=== PATIENT | female | born 1960 | race Caucasian/White ===

== ENCOUNTER → 2022-01-16 09:21 | Outpatient (BNVA) | payer OTHER, SELFPAY | PROVIDERS: Visit Provider Emergency Medicine | DX: M25.562 Pain in left knee (principal) | CPT/HCPCS: 73562; 87070; 87205 ==

== ENCOUNTER → 2022-03-15 10:15 | Outpatient (BNVA) | payer OTHER, SELFPAY | PROVIDERS: Visit Provider Nurse Practitioner Family | DX: R68.89 Other general symptoms and signs (principal); M25.562 Pain in left knee; J10.1 Influenza due to other identified influenza virus with other respiratory manifestations | CPT/HCPCS: 87400; 87426 ==

== ENCOUNTER → 2023-03-03 10:45 | Outpatient (BNVA) | payer OTHER, SELFPAY | PROVIDERS: Visit Provider Nurse Practitioner | DX: R68.89 Other general symptoms and signs (principal) | CPT/HCPCS: 87400; 87426 ==

== ENCOUNTER → 2023-07-22 11:18 | Outpatient (BNVA) | payer OTHER, SELFPAY | PROVIDERS: PCP Nurse Practitioner; Visit Provider Emergency Medicine | DX: M25.562 Pain in left knee (principal); G89.29 Other chronic pain; M17.12 Unilateral primary osteoarthritis, left knee | CPT/HCPCS: 73562 ==

== ENCOUNTER → 2024-05-03 10:57 | Outpatient (BNVA) | payer BC, MEDICARE, SELFPAY | PROVIDERS: PCP Nurse Practitioner; Visit Provider Nurse Practitioner | DX: M79.671 Pain in right foot (principal) | CPT/HCPCS: 84550 ==

== ENCOUNTER → 2024-05-12 14:23 | Outpatient (BNVA) | payer BC, SELFPAY | PROVIDERS: PCP Nurse Practitioner; Visit Provider Nurse Practitioner | DX: R10.9 Unspecified abdominal pain (principal); M25.571 Pain in right ankle and joints of right foot | CPT/HCPCS: 73610; 80053; 81000; 84443; 85025; 87086 ==

== ENCOUNTER 2024-05-28 08:48 | Outpatient (CLI) | payer BC, SELFPAY ==
--- NOTE | 2024-05-28 09:00 | US_ITS ---
WS: [id number] Complete ABDOMINAL ULTRASOUND HISTORY: R10.9 - Unspecified abdominal pain COMPARISON: None available. Liver: 16.1 cm in length. Normal size liver and echogenicity. No bile duct dilatation or mass. Portal Vein: Normal hepatopetal flow with monophasic waveform. Gallbladder: Normally distended gallbladder. There are several very small nonshadowing foci within the gallbladder adjacent to the wall that do not move or shadow consistent with small hyperplastic polyps. Largest polyp measures 5 mm. CBD: 0.5 cm Pancreas: Normal size and echogenicity. Right kidney: 10.2 cm x 4.0 x 3.8 cm. Cortex:1.0 cm. Normal size and echogenicity. No hydronephrosis or mass. Left kidney: 9.4 cm x 4.5 cm x 4.8 cm. Cortex: 1.0 cm. Normal size and echogenicity. No hydronephrosis or mass. Spleen: 9.3 cm. Normal size and echogenicity. Aorta and IVC: Unremarkable abdominal aorta and IVC. US/US abdomen complete* [id number] Impression: 1. Gallbladder polyps, hyperplastic polyps with the largest measuring 5 mm. No cholelithiasis identified. 2. Remaining abdomen ultrasound is negative.
== END 2024-05-28 08:49 | disposition home or self-care (01) ==
LOC: RAD 08:55
PROVIDERS: PCP Nurse Practitioner; Visit Provider Nurse Practitioner
DX: R10.9 Unspecified abdominal pain (principal); K82.4 Cholesterolosis of gallbladder
CPT/HCPCS: 76700

== ENCOUNTER 2024-06-17 13:02 | Outpatient (CLI) | payer BC, SELFPAY ==
--- NOTE | 2024-06-17 13:30 | CT_ITS ---
WS: [id number] CT HEAD TECHNIQUE: Noncontrast CT of the head obtained from the skullbase to the vertex. CLINICAL INFORMATION: R26.9 - Unspecified abnormalities of gait and mobility COMPARISON: None. DLP: 897.[address] scans at [facility] use at least one of these dose optimization techniques: automated exposure control; mA and/or kV adjustment per patient size (includes targeted exams where dose is matched to clinical indication); or iterative reconstruction. FINDINGS: No evidence of intracranial hemorrhage or mass effect. Ventricular system and basal cisterns are patent. Mild small vessel changes with mild parenchymal volume loss. Bulky benign dystrophic calcification along the falx. No extra- axial fluid collections. No evidence of mass or mass effect. Normal anne-white differentiation. Paranasal sinuses and mastoid air cells are well aerated. .Normal visualized soft tissues. CT/CT head wo con* [id number] IMPRESSION: 1. No evidence of intracranial hemorrhage or mass effect. 2. Mild small vessel changes with mild parenchymal volume loss. 3. No acute intracranial findings.
== END 2024-06-17 13:03 | disposition home or self-care (01) ==
LOC: RAD 13:06
PROVIDERS: PCP Nurse Practitioner; Visit Provider Nurse Practitioner
DX: R26.9 Unspecified abnormalities of gait and mobility (principal); K11.7 Disturbances of salivary secretion; R93.0 Abnormal findings on diagnostic imaging of skull and head, not elsewhere classified; G93.89 Other specified disorders of brain
CPT/HCPCS: 70450

== ENCOUNTER 2024-07-07 05:49 | Day surgery (SDC) | payer BC, SELFPAY ==
[2024-07-07] VITALS (14 sets, daily range): BP systolic 120–158; BP diastolic 54–90; PULSE 60–82; RESP 16–22; TEMP 36.1–36.6; O2SAT 99–100; BMI 27.8
[2024-07-07] MEDS: sodium chloride 0.9% 1,000 ML 30 ML IV (06:27)
--- NOTE | 2024-07-07 06:39 | ANES.PREANE2 ---
Pre-Anesthetic Assessment Height/Weight: Height 1.6 m Weight 71.214 kg Temp Pulse Resp BP Pulse Ox O2 Del Method 97.9 F 82 18 152/90 99 Room Air 07/07/24 06:05 07/07/24 06:05 07/07/24 06:05 07/07/24 06:05 07/07/24 06:05 07/07/24 06:11 Operation Date: 07/07/24 07:00 Proposed Procedures p Laparoscopic Cholecystectomy 91073 K82.9 K82.4(Not Applicable) - Mario Nunn MD Familial anesthetic complications: Potential MH in her father, patient seems to deny that was an issue now. Says her father did fine most of his life but when he was elderly he got hot and confused Poor historian on the subject Was Beta Sera taken within 24 hours: N/A Was Clonidine taken within 24 hours: N/A Last intake: Intake Last Liquid Date 07/06/24 Last Liquid Time 21:00 Last Solid Date 07/06/24 Last Solid Time 21:00 Social No alcohol and No tobacco Exam alert, oriented x 3, clear to auscultation bilaterally and regular rate & rhythm Airway Mallampati: Class I Dentition: other (none) Musc/skel Osteoarthritis/DJD Anesthetic Plan ASA status: 2 Anesthesia: General Risk of > 500 ml blood loss (7ml/kg in children): No Medications/Allergies Home Medications ?Medication ?Instructions ?Recorded ?Confirmed ?Last Taken ?Type acetaminophen 325 mg tablet 325 mg PO QID PRN Pain 06/17/24 07/06/24 Unknown History (Tylenol) prednisone 10 mg tablet 30 mg (3 x 10 mg) PO DAILY #15 tabs 07/01/24 07/06/24 07/05/24 Rx Allergies Allergy/AdvReac Type Severity Reaction Status Date / Time onion Allergy Severe ADR-Heartbu Verified 07/01/24 14:31 rn eggs Allergy Severe ADR-Vomitin Uncoded 07/01/24 14:31 g garlic Allergy Severe ADR-Confusi Uncoded 07/01/24 14:31 on Current Medications Generic Name Dose Route Start Last Admin Trade Name Freq PRN Reason Stop Dose Admin Sodium Chloride 1,000 mls @ 30 mls/hr 07/07/24 06:00 07/07/24 06:27 Sodium Chloride 0.9% IV 07/08/24 05:59 30 mls/hr .Q24H ARABELLA Administration PFSH Anesthesia Medical History Chronic pain of left knee Degenerative arthritis of left knee Family History Grandmother Cancer esophageal, breast Father Hypertension Arthritis Stroke Diabetes Social History Smoking and tobacco/nicotine status: former use of tobacco/nicotine Quit status (tobacco/nicotine): has quit using Second hand smoke exposure: No Alcohol intake: former Former alcohol use details: occasionally Substance/Drug Use: never Adopted: No Caregiver/support person: No Lives independently: Yes Housing: House Marital status: / Marital status details: , then Number of children: 2 Number of grandchildren: 1 service: No Current occupational status: employed Current occupation: [place], [place] Current occupational exposures/hazards: No Pets and animals: Yes (1) Pets & animals: cat(s) and dog(s) Sexually active: No Do you think of yourself as: Straight/Heterosexual Current gender identity: Female Special maximo needs: No Agree to transfusion: Yes Female Reproductive History Spontaneous abortions: No Data Anesthesia Cardiac Studies: No Data to Display
--- NOTE | 2024-07-07 07:04 | W.PM.OPSUD ---
Surgery/Procedure H&P Update DATE OF PROCEDURE: July 07, 2024 DATE H&P PERFORMED: 06/17/24 H&P UPDATE INFORMATION: I have reviewed H&P completed within last 30 days, I have examined patient prior to procedure and No changes to prior documentation PLANNED PROCEDURE: Operation Date: 07/07/24 07:00 Proposed Procedures p Laparoscopic Cholecystectomy 47677 K82.9 K82.4(Not Applicable) - Mario Nunn MD
[2024-07-07] MEDS: ceFAZolin 2,000 mg SDV 2000 MG IVP (07:10)
[2024-07-07] MEDS: lidocaine-epi 1% 20 mL INJ INJECTION (07:37)
--- NOTE | 2024-07-07 08:33 | PM.OP ---
Operative Report Date of procedure: July 07, 2024 Pre-op diagnosis: Gallbladder polyps Post-op diagnosis: same Post-op findings: Normal gallbladder Procedure done: Laparoscopic cholecystectomy Implants: NA Specimens removed/disposition: Gallbladder sent to pathology Pathology: Gallbladder Surgeon: Mario Nunn MD Electrician Chief: TATIANA Anesthesia: General Estimated blood loss (mL): 10 Complications: NA Findings: Grossly normal gallbladder Condition: stable Disposition: same day Brief History: 64 yo female who presented with gallbladder polyps that were symptomatic. Discussed risk and benefits and patient agreed to proceed with laparoscopic cholecystectomy possible open. Procedure: I discussed the risks and benefits of laparoscopic cholecystectomy, and obtained consent prior to proceeding to the operating room. SCDs were utilized. Prophylactic antibiotics were administered. General anesthesia was induced. The patient was placed supine, and she was prepped and draped in the usual sterile fashion. Insufflation to 15mmHg was achieved using a Veress needle at Lomeli's point. A 12mm optiview trocar was placed at the umbilicus under direct visualization. The left upper quadrant was inspected, and no injuries were noted. Two 5mm ports were placed in the right upper quadrant, and a 12mm working port was placed in the epigastrium. The gallbladder was then retracted cephalad through the lateral RUQ port, and the infundibulum grabbed through the medial RUQ port and retracted laterally. The gallbladder was not inflammed and the liver had a normal appearance. I proceeded to score the peritoneum over the medial aspect of the gallbladder using a laparoscopic hook with electrocautery. Then the infundibulum was retracted medially in order to score the peritoneum over the lateral aspect of the galbladder. Using a combination of energy and blunt dissection with the [place] and a Kittner dissector, the cystic artery and cystic duct were dissected. I then proceeded to dissect the cystic plate in order to to achieve the critical view of safety. The cystic artery and the cystic duct were clipped three times (leaving two clips on the proximal end of both structures). I then proceeded to dissect the gallbladder off the liver using hook electrocautery. The specimen was placed in an endocatch bag and retrieved from the abdomen through the port on the epigastrium. I then irrigated the gallbladder fossa with 1L of NS to confirm adequate hemostasis and the absence of any bile leaks. The gallbladder fossa was then cauterized again. Prior to ending the laparoscopic portion, I examined the rest of the abdomen and did not find any abnormalities or injuries. The abdomen was then desufflated, and the 11mm port at the umbilicus was closed using 0 vicryl on a UR needle after irrigating copiously. Skin was closed using 4-0 monocryl and surgical glue. The patient woke up from anesthesia and transferred to PACU without any complications.
[2024-07-07] MEDS: fentaNYL 50 mcg/mL INJ 2mL IVP (09:00)
--- NOTE | 2024-07-07 10:20 | ANE.PACU2 ---
Inpatient post-anesthesia follow up: Airway intact: Yes Vital signs: Temperature 97.1 F Pulse Rate 60 Respiratory Rate 18 Blood Pressure 158/90 Pulse Oximetry 100 Oxygen Delivery Me thod Room Air Oxygen Flow Rate 10 Fraction of Inspir ed Oxygen Hydration adequate: Yes Nausea and vomiting: No Pain level: 1 Mental status: Baseline
== END 2024-07-07 10:26 | disposition home or self-care (01) ==
PROVIDERS: PCP Nurse Practitioner; Visit Provider Student in an Organized Health Care Education/Training Program
PROC: 0FT44ZZ Resection of Gallbladder, Percutaneous Endoscopic Approach (ICD-10-PCS; CPT 47562; principal; 2024-07-07 07:00)
DX: K80.10 Calculus of gallbladder with chronic cholecystitis without obstruction (principal); E78.5 Hyperlipidemia, unspecified; Z87.891 Personal history of nicotine dependence
CPT/HCPCS: 47562; 88304; A4216; J0690; J1100; J1885; J2405; J2704; J3010; J3490; J7030; J9999

== ENCOUNTER → 2024-08-19 15:02 | Outpatient (BNVA) | payer BC, SELFPAY | PROVIDERS: PCP Nurse Practitioner; Referring Provider Nurse Practitioner; Visit Provider Nurse Practitioner | DX: S69.91XA Unspecified injury of right wrist, hand and finger(s), initial encounter (principal); X58.XXXA Exposure to other specified factors, initial encounter | CPT/HCPCS: 73130 ==

== ENCOUNTER 2024-10-05 13:10 | Outpatient (CLI) | payer BC, SELFPAY ==
--- NOTE | 2024-10-05 13:12 | CT_ITS ---
WS: [id number] CT ABDOMEN AND PELVIS WITH CONTRAST HISTORY: R19.04 - Left lower quadrant abdominal swelling, mass and... TECHNIQUE: Imaging performed of the abdomen and pelvis with IV contrast. Single phase imaging of the abdomen. Coronal and sagittal reformats are submitted. All CT scans at [facility] use at least one of these dose optimization techniques: automated exposure control; mA and/or kV adjustment per patient size (includes targeted exams where dose is matched to clinical indication); or iterative reconstruction. IV CONTRAST: Omnipaque 350; 100 mL IV. Oral contrast: Yes. DLP: 481.48 mGy.cm COMPARISON: None available. Lower thorax: Lung bases are clear. Heart is normal size. Large hiatal hernia. Liver/biliary system: Normal size with no intrahepatic dilatation. 5 mm cyst LEFT lobe. Gallbladder: Prior cholecystectomy. Pancreas: Normal size pancreas and pancreatic duct. No adjacent inflammation. Spleen: Normal size spleen. No mass or infarct. Adrenal glands: Normal. Right kidney: Mild RIGHT renal atrophy. Kidney measures 7.8 cm in length. Extrarenal pelvis. No renal obstruction. No mass. Left kidney: Low normal size kidney, 8.4 cm in length. Small extrarenal pelvis. No obstruction. Aorta: Mild atherosclerosis with no aneurysm. Lymphadenopathy: None. Free fluid: None. GI tract: No small bowel obstruction. Constipation. Normal appendix. No colitis or GI tract obstruction. Abdominal wall: Mild subcutaneous soft tissue stranding LEFT lateral abdominal wall at the level of the iliac crest. No mass identified. Tiny umbilical hernia contains fat. Pelvis: No free fluid or adenopathy within the pelvis. Periuterine veins. Prominent uterine veins related to pelvic venous congestion. Bones: L4 anterolisthesis by 3 mm. Mild degenerative changes within the lumbar spine. CT/CT abdomen pelvis w con* [id number] IMPRESSION: 1. Subcutaneous soft tissue stranding in the LEFT lower abdominal wall at the level of the iliac crest. Residual soft tissue contusion. No mass. 2. Large hiatal hernia. 3. No GI tract obstruction. 4. Pelvic venous congestion. Numerous periuterine veins are identified. 5. Mild diffuse constipation. 6. Mild atrophy RIGHT kidney and low normal size LEFT kidney.
[2024-10-05] MEDS: iohexol 350 mg/mL 500 mL Btl (per mL) PO (14:16)
[2024-10-05 14:33] LABS: Blood Urea Nitrogen 23 mg/dL (8-23)
[2024-10-05] MEDS: iohexol 350 mg/mL 500 mL Btl (per mL) IV (14:33)
== END 2024-10-05 13:11 | disposition home or self-care (01) ==
PROVIDERS: PCP Nurse Practitioner; Visit Provider Nurse Practitioner
DX: K44.9 Diaphragmatic hernia without obstruction or gangrene (principal); K59.00 Constipation, unspecified; N26.1 Atrophy of kidney (terminal)
CPT/HCPCS: 74177; 82565; 84520

== ENCOUNTER → 2024-10-07 14:13 | Outpatient (BNVA) | payer BC, SELFPAY | PROVIDERS: PCP Nurse Practitioner; Visit Provider Nurse Practitioner | DX: R25.2 Cramp and spasm (principal) | CPT/HCPCS: 80053 ==

== ENCOUNTER → 2024-10-27 09:12 | Outpatient (BNVA) | payer BC, SELFPAY | PROVIDERS: PCP Nurse Practitioner; Visit Provider Specialist | DX: M17.12 Unilateral primary osteoarthritis, left knee (principal); Z01.818 Encounter for other preprocedural examination | CPT/HCPCS: 36415; 73560; 73565; 80053; 81001; 83036; 85025 ==

== ENCOUNTER → 2024-11-10 15:58 | Outpatient (BNVA) | payer BC, SELFPAY | PROVIDERS: PCP Nurse Practitioner; Referring Provider Nurse Practitioner; Visit Provider Specialist | DX: G44.309 Post-traumatic headache, unspecified, not intractable (principal); R41.89 Other symptoms and signs involving cognitive functions and awareness | CPT/HCPCS: 36415; 82542; 83520 ==

== ENCOUNTER → 2024-11-12 09:02 | Outpatient (BNVA) | payer BC, SELFPAY | PROVIDERS: PCP Nurse Practitioner; Visit Provider Family Medicine | DX: Z01.818 Encounter for other preprocedural examination (principal) | CPT/HCPCS: 81003; 87086; 93005 ==

== ENCOUNTER 2024-11-16 13:48 | Outpatient (CLI) | payer BC, SELFPAY ==
--- NOTE | 2024-11-16 14:30 | MR_ITS ---
WS: [id number] MRI BRAIN WITHOUT CONTRAST HISTORY: G44.309 - Post-traumatic headache, unspecified, LOC. COMPARISON: CT head 06/17/2024 TECHNIQUE: Diffusion imaging, multiplanar T1, T2 and FLAIR imaging obtained. No evidence for acute infarct or hemorrhage. Perez-white matter differentiation is normal. Dense calcification along the interhemispheric falx. Mild symmetric cerebral atrophy. No prior infarct. Mild cerebellar atrophy. No ischemic change in the ezra. Ventricles and extra-axial spaces are normal. No inferior displacement of cerebellar tonsils. The sella turcica and pituitary gland are unremarkable. Dural venous sinuses and [place] of [place] demonstrate no abnormality on this unenhanced studies. Paranasal sinuses: Clear. Mastoid air cells: Normal. Calvarium and scalp: Intact. MR/MR head wo con* [id number] IMPRESSION: 1. No diffusion abnormality or prior hemorrhage. No hemosiderin. 2. Mild cerebral atrophy and cerebellar atrophy. 3. No prior infarct and no hemorrhage.
--- NOTE | 2024-11-16 16:45 | CT_ITS ---
WS: [id number] CT LEFT KNEE, NONCONTRAST TECHNIQUE: Noncontrast CT of the LEFT knee to include the LEFT hip and ankle. [facility] CLINICAL INFORMATION: M17.12 - Unilateral primary osteoarthritis, left knee DLP: 1839.[address] scans at [facility] use at least one of these dose optimization techniques: automated exposure control; mA and/or kV adjustment per patient size (includes targeted exams where dose is matched to clinical indication); or iterative reconstruction. FINDINGS: Advanced tricompartmental arthritis LEFT knee with large joint effusion. Hypertrophic patella. Hypertrophic changes along the joint line. Infrapatellar soft tissue edema. Sigmoid diverticulosis. CT/CT knee LT [facility] [id number] IMPRESSION: Images obtained for preoperative purposes.
== END 2024-11-16 13:49 | disposition home or self-care (01) ==
LOC: RAD 13:48
PROVIDERS: PCP Nurse Practitioner; Visit Provider Specialist
DX: G44.309 Post-traumatic headache, unspecified, not intractable (principal); Z01.818 Encounter for other preprocedural examination; M17.12 Unilateral primary osteoarthritis, left knee; G89.29 Other chronic pain
CPT/HCPCS: 70551; 73700

== ENCOUNTER 2024-12-02 10:36 | Observation (INO) | payer BC, SELFPAY ==
[2024-11-29 11:00] VITALS: BP 111/67; PULSE 67; RESP 14; TEMP 36.5; O2SAT 97
[2024-12-02] VITALS (21 sets, daily range): BP systolic 95–138; BP diastolic 51–82; PULSE 66–91; RESP 12–18; TEMP 36.3–36.7; O2SAT 92–100; BMI 28.3
--- NOTE | 2024-12-02 06:04 | P.ANESASSM_ITS ---
Pre-Anesthetic Assessment Height/Weight: Height 5 ft 3 in Preop Diagnosis: Knee arthritis Operation Date: 12/02/24 07:00 Proposed Procedures p LEFT Zach Robot Total Knee Arthroplasty(Left) - Kelly Miller MD Was Beta Sera taken within 24 hours: N/A Was Clonidine taken within 24 hours: N/A Social No alcohol and No tobacco Exam alert, oriented x 3, clear to auscultation bilaterally and regular rate & rhythm Airway Submandibular: within normal limits Cervical ROM: within normal limits Mallampati: Class II Dentition: partials Anesthetic Plan ASA status: 2 Anesthesia: General Other: Concern for possible MH in father but patient states that he always did okay with anesthesia just would get hot and have postop delirium. Patient had a GA earlier this year and ran on propofol gtt. without issues NPO since yesterday evening Denies any cardiac or pulmonary issues Labs reviewed from 10/27/2024 and acceptable for procedure EKG sinus rhythm Plan for general anesthesia with TIVA Medications/Allergies Home Medications ?Medication ?Instructions ?Recorded ?Confirmed ?Last Taken ?Type celecoxib 100 mg capsule (Celebrex) 100 mg PO BID #60 caps 10/26/24 12/01/24 Unknown Rx prednisone 10 mg tablet 20 mg PO BID 12/01/24 Unknown History Allergies Allergy/AdvReac Type Severity Reaction Status Date / Time onion Allergy Severe ADR-Heartbu Verified 12/01/24 12:18 rn eggs Allergy Severe ADR-Vomitin Uncoded 12/01/24 12:18 g garlic Allergy Severe ADR-Confusi Uncoded 12/01/24 12:18 on [facility] Anesthesia Medical History Chronic pain of left knee Degenerative arthritis of left knee Family History Grandmother Cancer esophageal, breast Father Hypertension Arthritis Stroke Diabetes Social History Smoking and tobacco/nicotine status: never used tobacco/nicotine Quit status (tobacco/nicotine): has quit using Second hand smoke exposure: No Alcohol intake: former Former alcohol use details: occasionally Substance/Drug Use: never Adopted: No Caregiver/support person: No Lives independently: Yes Housing: House Marital status: / Marital status details: , then Number of children: 2 Number of grandchildren: 1 service: No Current occupational status: employed Current occupation: [place], [place] Current occupational exposures/hazards: No Pets and animals: Yes (1) Pets & animals: cat(s) and dog(s) Sexually active: No Do you think of yourself as: Straight/Heterosexual Current gender identity: Female Special maximo needs: No Agree to transfusion: Yes Female Reproductive History Spontaneous abortions: No
[2024-12-02] MEDS: acetaminophen 1,000 MG/100 ML PIGGYBACK 400 MG IV ×3 (06:37→22:43)
--- NOTE | 2024-12-02 07:01 | P.HPUD_ITS ---
Surgery/Procedure H&P Update DATE OF PROCEDURE: December 02, 2024 DATE H&P PERFORMED: 11/10/24 H&P UPDATE INFORMATION: I have reviewed H&P completed within last 30 days, I have examined patient prior to procedure, No changes to prior documentation, H&P is in [facility] EMR on date indicated and Risks and benefits of the procedure reviewed PREOP DIAGNOSIS: Left Knee arthritis PLANNED PROCEDURE: Operation Date: 12/02/24 07:00 Proposed Procedures p LEFT Zach Robot Total Knee Arthroplasty(Left) - Kelly Miller MD Related Problem List Diagnoses 1. Degenerative arthritis of left knee:
[2024-12-02] MEDS: ceFAZolin 2,000 mg SDV 2000 MG IVP ×3 (07:03→22:43)
[2024-12-02] MEDS: tranexamic acid 1,000 mg/10mL SDV 1000 MG IV (07:40)
[2024-12-02] MEDS: ceFAZolin 1,000 mg SDV 2000 MG IRRIGATION (08:03)
[2024-12-02] MEDS: BUPivacaine 0.5% INJ 10 mL 20 ML INJECTION (08:05)
[2024-12-02] MEDS: BUPivacaine liposome 13.3 mg/mL SDV 20 mL 266 MG XX (08:05)
--- NOTE | 2024-12-02 10:02 | PM.OP ---
Operative Report Date of procedure: December 02, 2024 Pre-op diagnosis: Primary osteoarthritis left knee with varus deformity and flexion contracture, 17 degrees Post-op diagnosis: Primary osteoarthritis left knee with varus deformity and flexion contracture, 17 degrees Post-op findings: Severe degenerative osteoarthritis with complete denudement of cartilage, large osteophyte formation. Send patella, and flexion contracture of approximately 17 degrees Procedure done: Left total knee arthroplasty with Zach guidance Implants: The [employer] total knee system with a size 3 triathlon beaded cruciate retaining femur left, a triathlon titanium tibial component size 2 beaded, a triathlon X3 tibial bearing CS insert size 2 x 11 mm and a beaded triathlon titanium asymmetric patella size 32 x 10 mm Specimens removed/disposition: Bone, disposed of, cyst sent to pathology Pathology: Intra-articular cystic structure Surgeon: Kelly Miller MD Supervisor Intermediates: Keiko Paul, nurse practitioner, who services were required for retraction, positioning, completion of the surgical procedure, and closure. Anesthesia: General (Per LMA, ASA 2) Estimated blood loss (mL): 370 Tourniquet time (min): 0 (Not utilized) IV fluids (mL): 800 Urine output (mL): 100 Complications: None Findings: As above Condition: stable Disposition: PACU (Then to floor for postoperative rehabilitation and pain management) Brief History: This 64-year-old woman presented to my office with complaints of severe left knee pain. She had significant limitations in her activities of daily living. 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 The patient had a flexion contracture as well as varus deformity. She was taking Celebrex without significant benefit. After discussion in the office, the patient wished to proceed with left total knee arthroplasty. Risks and complications were discussed with her. Consents were signed in the office and questions were answered. She was given further opportunity for questions on the morning of surgery. Procedure: The patient was brought to the operating theater, and after undergoing general anesthesia per LMA, ASA 2, the left lower extremity was prepped with Dura-Prep and draped in usual fashion following placement of a tourniquet high on the leg. The leg was then draped free.? Tourniquet was not elevated throughout the surgical procedure. Prior to commencement of the procedure, a surgical pause was performed, and at the time of the surgical pause, we confirmed the site and side of surgery. Additionally, we confirmed the appropriate and timely administration of preoperative antibiotics, Ancef 2 g. The availability of equipment was confirmed, and the patient's identity was verbalized as well. Following the surgical pause, an incision was made centering over the patella continuing proximally and distally as necessary to allow access to the knee joint. Prior to incision, assessment was made of the patient's leg, and there was noted to be a significant flexion contracture. Dissection continued through skin and soft tissues using a scalpel. Hemostasis was obtained using electrocautery. The skin incision was followed by a median parapatellar arthrotomy. The leg was extended, and the patella was able to be displaced laterally.? Large osteophytes were removed from the patella initially and also from the anterior femur secondary to obstruction of the surgical field. There was a cyst in the supra patellar area which was sent to pathology and debrided. Appropriate arrays and markers were placed in appropriate position for use of the Zach.? Preoperative planning had been accomplished and was discussed in detail with the Zach sales representative printing supplies.? Intraoperative mapping of the femur and tibia was accomplished after the arrays were placed.? Internal markers were also placed.? Once we had accomplished the Zach mapping, we began the appropriate resections for placement of the prosthesis.? The plan was for a cruciate retaining left total knee arthroplasty. Once appropriate mapping had been accomplished retraction was established using manual retraction by surgical technicians and also the Zach leg positioner and retractors.? The knee was evaluated.? There was significant osteoarthritic change as well as a significant flexion contracture and severe varus deformity.? With the Zach, we were able to determine that the preoperative flexion contracture was 17 degrees. Intraoperative planning was adjusted based on this preoperative flexion contracture. Appropriate bone resection was accomplished using the Zach.? The femur was sized to a size 3.? Following femoral cuts, attention was directed to the tibia.? Osteophytes were removed prior to this portion of the procedure.? We had performed a medial release at the beginning of the procedure to allow for placement of the array.? Proximal tibia was evaluated, and it was felt that appropriate size for the tibia was a size 2.? The size 2 tray was noted to fit nicely with good coverage.? Rim fit was accomplished with the size 2. A trial reduction was accomplished after osteophytes had been removed as well as the medial and lateral menisci.? We had removed the anterior cruciate ligament at the beginning of the case and preserved the posterior cruciate ligament.? Trial reduction was accomplished with a size 2 femoral cruciate retaining component, a size 2 tibial tray and a size 2 CS tibial bearing insert which was 11 mm thickness. With this insert, the knee was noted to be well-balanced. Alignment was felt to be appropriate as well.? Out of concern for loosening of the knee over time since the patient had significant contractures, election was made to place a size 11 tibial tray as the final implant. Trial components were removed after the femur had been drilled.? Prior to removal of the tibial tray which had been pinned in position with appropriate rotation as determined by the Zach plan, we broached the tibia.? Subsequently, the 4 drill holes were made for the prosthetic component.? All trial components were removed, and the wound was irrigated.? Plans were made for insertion of the prosthetic components.? Prior to this, the patella was manually prepared.? After resection of the articular surface with the jigging system, it was measured and measured a 32 mm patella.? We resected approximately 11 mm of patella.? Patellar height was restored with the patellar component. Lateral release was required. Once again, the wound was irrigated. The Tritanium tibia was impacted into position.? The beaded femur was then impacted into position in a cementless fashion. The CS tibial insert was placed prior to placement of the femoral component. The patella was pressed into position with a patellar clamp.? Exparel was injected about the components deep and superficially.? The knee was then copiously irrigated with betadine and saline and suctioned dry. Attention was then directed to closure. Closure was accomplished with 0 Vicryl in the fascial tissues.? The suture line of 0 Vicryl was supplemented with strata fix, #1, with a running suture from proximal to distal and a second running stitch from distal to proximal.? This was followed by Surgiflo and vancomycin powder.? Following this, a 2-0 Strata Fix was used in the subcutaneous tissues, and the skin was closed with 3-0 Strata fix.? Care was taken to assure an excellent subcutaneous as well as skin closure.? A sterile dressing was then placed consisting of Dermabond Prineo, OpSite, ABD, sterile soft roll, and an Hardeep wrap including over the foot. The patient was returned the Recovery Room in a satisfactory condition. X-rays were obtained and reviewed there.? The patient will be discharged to the floor for postoperative rehabilitation and pain management. Related Problem List Diagnoses 1. Degenerative arthritis of left knee: 2. Flexion contracture of left knee:
--- NOTE | 2024-12-02 10:06 | XR_ITS ---
WS: [id number] Left knee, 3 views, 12/02/2024 Clinical Data: Status post left total knee arthroplasty Comparison: AP both knees, left knee, 10/27/2024 Findings: There is a knee arthroplasty. The components are in good position. There is postoperative air in the subcutaneous tissue. XR/XR knee LT 1-2V [id number] Impression: Left knee arthroplasty.
--- NOTE | 2024-12-02 10:28 | PC.NURSE ---
Re: patients medication list. Pt has listed medications at home and advises that she uses all of them only as she feels that she needs them. Patient was reminded that daily prescription medications should be taken as prescribed for optimal effect. Patient advised that she doesn't like to take pills if she doesn't feel that she needs them.
[2024-12-02] MEDS: fentaNYL 50 mcg/mL INJ 2mL IVP (10:40)
--- NOTE | 2024-12-02 10:55 | ANE.PACU2 ---
Inpatient post-anesthesia follow up: Airway intact: Yes Vital signs: Temperature 97.4 F Pulse Rate 68 Respiratory Rate 16 Blood Pressure 119/71 Pulse Oximetry 95 Oxygen Delivery Me thod Room Air Oxygen Flow Rate 8 Fraction of Inspir ed Oxygen Hydration adequate: Yes Nausea and vomiting: No Pain level: 1 Mental status: Baseline
[2024-12-02] MEDS: oxyCODONE 5 mg IR Tab/Cap PO (12:51)
[2024-12-02] MEDS: mupirocin oint 22 gm 1 APPLIC NASAL (17:23)
[2024-12-02] MEDS: chlorhexidine gluconate 0.12% Btl 473 mL 30 ML MUCOUS MEM ×2 (17:25→20:51)
--- NOTE | 2024-12-02 22:11 | ECG_ITS ---
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
[2024-12-02] MEDS: lidocaine 2% viscous 15 ML, aluminum-mag hydrox-simethicon 30 ML, sucralfate oral liq 1 GM PO (22:42)
[2024-12-02 23:23] LABS: Troponin(5th) Baseline 10 ng/L (0-10)
[2024-12-03] VITALS (7 sets, daily range): BP systolic 92–118; BP diastolic 59–70; PULSE 65–90; RESP 14–17; TEMP 36.6–36.8; O2SAT 96–97
--- NOTE | 2024-12-03 00:52 | PM.CONSULT ---
Providers/Reason For Consult Consulting Physician/Specialty*: Toño Denny MD hospitalist Reason for Consult*: Chest pain Requesting Physician: Kelly Miller MD Attending Physician: Kelly Miller MD Primary Care Provider: YUE Stark History of Present Illness History of Present Illness Christianne Reed is a 64 year old female with history of reflux at home for which she takes Tums underwent anesthesia today for left knee replacement patient had acute onset of severe chest pain right epigastric and reports that 01/28 and lasted 1 to 2 hours. She states she kept asking for someone to give her something for reflux. I gave her GI cocktail and it relieved the pain down to 0 within a few minutes. She states she then passed some gas with belching and farting and pain has not returned. Patient reports she has a large hiatal hernia. She has never been a smoker and has not had any coronary artery disease Family history is notable for her father who was a electrical design technologist but smoked until patient was age 9 and he had coronary artery disease and a mild MO followed by a stroke. Paternal side great grandpa grandpa and great uncle all had heart disease the great uncle actually did not smoke and had disease fairly young Medications/Allergies Home Medications ?Medication ?Instructions ?Recorded ?Confirmed ?Last Taken ?Type celecoxib 100 mg capsule (Celebrex) 100 mg PO BID #60 caps 10/26/24 12/01/24 Unknown Rx prednisone 10 mg tablet 20 mg PO BID 12/01/24 12/01/24 Unknown History Tylenol 12/02/24 12/02/24 Unknown History benzonatate 100 mg capsule 100 mg PO DAILY 12/02/24 12/02/24 Unknown History ciprofloxacin 0.3 %-dexamethasone 1 drp otic (ear) DAILY 12/02/24 12/02/24 Unknown History 0.1 % ear drops,suspension diclofenac sodium 75 mg 75 mg PO DAILY PRN Pain 12/02/24 12/02/24 Unknown History tablet,delayed release hydroxyzine HCl 10 mg tablet 10 mg PO DAILY 12/02/24 12/02/24 Unknown History ibuprofen 200 mg PO PRN PRN Pain 12/02/24 12/02/24 Unknown History lisinopril 2.5 mg tablet 2.5 mg PO DAILY 12/02/24 12/02/24 Unknown History tizanidine 2 mg tablet 2 mg PO PRN PRN Pain 12/02/24 12/02/24 Unknown History Allergies Allergy/AdvReac Type Severity Reaction Status Date / Time onion Allergy Severe ADR-Heartbu Verified 12/01/24 12:18 rn eggs Allergy Severe ADR-Vomitin Uncoded 12/01/24 12:18 g garlic Allergy Severe ADR-Confusi Uncoded 12/01/24 12:18 on Current Medications Generic Name Dose Route Start Last Admin Trade Name Freq PRN Reason Stop Dose Admin Calcium Carbonate 1,000 mg 12/02/24 17:00 12/02/24 15:50 Calcium Carbonate 500 Mg Chew Tablet PO Not Given BID@0500,1700 [facility] Cefazolin Sodium 2,000 mg 12/02/24 15:00 12/02/24 22:43 Cefazolin 2,000 Mg Sdv IVP 12/03/24 07:01 2,000 mg Q8H [facility] Administration Protocol Celecoxib 200 mg 12/02/24 18:30 12/02/24 17:24 Celecoxib 200 Mg Capsule PO 200 mg Q12H ARABELLA Administration Chlorhexidine Gluconate 30 ml 12/02/24 13:00 12/02/24 20:51 Chlorhexidine Gluconate 0.12% Btl 473 Ml MUCOUS MEM 30 ml QID [facility] Administration Acetaminophen 1,000 mg in 100 mls @ 400 mls/hr 12/02/24 14:30 12/02/24 23:07 Acetaminophen IV 12/03/24 06:44 Infused Q8H [facility] Infusion Mupirocin 1 applic 12/02/24 17:00 12/02/24 17:23 Mupirocin Oint 22 Gm NASAL 1 applic BID@0500,1700 [facility] Administration Protocol Oxycodone HCl 5 - 10 mg 12/02/24 11:35 12/02/24 12:51 Oxycodone 5 Mg Ir Tab/Cap PO 5 mg Q4H PRN Administration MODERATE TO SEVERE PAIN Polysaccharide Iron Complex 150 mg 12/02/24 18:00 12/02/24 17:24 Iron Polysaccharide Complex 150 Mg Capsule PO 150 mg BIDWM ARABELLA Administration Senna/Docusate Sodium 2 tab 12/02/24 17:00 12/02/24 16:05 Sennosides-Docusate Tablet PO Not Given BID@0500,1700 [facility] PFSH Acute PFSH: Medical History (Updated 12/03/24 @ 00:56 by Toño Denny MD) GERD (gastroesophageal reflux disease) Chronic pain of left knee Degenerative arthritis of left knee Family History Grandmother Cancer esophageal, breast Father Hypertension Arthritis Stroke Diabetes Social History Smoking and tobacco/nicotine status: never used tobacco/nicotine Quit status (tobacco/nicotine): has quit using Second hand smoke exposure: No Alcohol intake: former Former alcohol use details: occasionally Substance/Drug Use: never Adopted: No Caregiver/support person: No Lives independently: Yes Housing: House Marital status: / Marital status details: , then Number of children: 2 Number of grandchildren: 1 service: No Current occupational status: employed 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 [employer] Current occupational exposures/hazards: No Pets and animals: Yes (1) Pets & animals: cat(s) and dog(s) Sexually active: No Do you think of yourself as: Straight/Heterosexual Current gender identity: Female Special maximo needs: No Agree to transfusion: Yes Female Reproductive History: Spontaneous abortions: No Vitals/I&O/Wt Last Vital Signs Temp 98.1 F 12/02/24 23:56 Pulse 91 12/02/24 23:56 Resp 16 12/02/24 23:56 BP 127/72 12/02/24 23:56 Pulse Ox 98 12/02/24 23:56 O2 Del Method Room Air 12/02/24 23:56 O2 Flow Rate 8 12/02/24 10:23 12/02/24 12/02/24 12/03/24 14:59 22:59 06:59 Intake Total 460 / 460 811 / 1271 100 / 1371 Output Total 470 / 470 400 / 870 Balance -10 / -10 411 / 401 100 / 501 Weight last 48 hrs Weight 74.435 kg Weight 72.575 kg Physical Exam Narrative: General well-developed well-nourished female in no acute cardiopulmonary arrest CV regular rate and rhythm Lungs clear to auscultation bilaterally Chest no sternal tenderness to palpation no epigastric tenderness Abdomen positive bowel tones soft nontender Left knee is an Hardeep wrap Urinary Catheter Management: Castaneda: Cath Placed During This Visit: yes Reason for Continuing Indwelling Catheter: Perioperative Use in Selected Surgeries Urinary Catheter Date of Insertion: 12/02/24 Urinary Catheter Time of Insertion: 07:13 A&P Assessment and plan 1. Atypical chest pain: Resolved with GI cocktail and belching and farting. Cardiac enzymes negative EKG normal will discontinue further serial enzymes and EKGs 2. GERD (gastroesophageal reflux disease): Start pantoprazole. I have encouraged patient to take PPI outpatient and have EGD every 5 years due to severe reflux. PDMP PDMP Reviewed: Not Reviewed Consult Attestations Medical Necessity Statement: Patient talita in the hospital for post op recovery of left total knee arthroplasty Coding Level of Care Code 86931 Diagnoses Atypical chest pain R07.89 GERD (gastroesophageal reflux disease) K21.9 Time Spent (min) 35
--- NOTE | 2024-12-03 02:39 | PC.NURSE ---
Behavior Patient repeatedly apologizes to staff during interactions stating, I'm so sorry for bothering you . Staff reassures patient that she is not a bother and to please use her call light any time she needs anything.
[2024-12-03 04:49] LABS: Hematocrit 26.3 % (36-47); Hemoglobin 8.50 g/dL (11.27-16.99); Mean Corpuscular HGB Conc 32.3 g/dL (30-55); Mean Corpuscular Hemoglobin 26.9 pg (27-33); Mean Corpuscular Volume 83.2 fl (85-98); Nucleated Red Blood Cells % 0 %; Platelet Count 289 10^3/cmm (157-399); Red Blood Count 3.16 10^6/uL (3.85-5.65); White Blood Count 9.67 10^3/uL (3.29-11.43)
[2024-12-03 05:10] LABS: Troponin T (5th) Once 11 ng/L (0-10)
[2024-12-03] MEDS: sennosides-docusate Tablet 2 TAB PO (06:22)
[2024-12-03] MEDS: mupirocin oint 22 gm 1 APPLIC NASAL (06:22)
[2024-12-03] MEDS: ceFAZolin 2,000 mg SDV 2000 MG IVP (06:23)
[2024-12-03] MEDS: acetaminophen 1,000 MG/100 ML PIGGYBACK 400 MG IV (06:23)
[2024-12-03] MEDS: multivitamin therapeutic Tablet 1 TAB PO (08:14)
[2024-12-03] MEDS: oxyCODONE 5 mg IR Tab/Cap PO ×2 (08:14→12:16)
[2024-12-03 08:17] LABS: Troponin T (5th) Once 16 ng/L (0-10)
--- NOTE | 2024-12-03 11:43 | P.PN_ITS ---
Subjective 2 Subjective: No chest pain this AM. Vitals/I&O/Wt Last Vital Signs Temp 98.2 F 12/03/24 08:11 Pulse 85 12/03/24 08:11 Resp 16 12/03/24 08:14 BP 107/67 12/03/24 08:11 Pulse Ox 96 12/03/24 08:11 O2 Del Method Room Air 12/03/24 08:11 O2 Flow Rate 8 12/02/24 10:23 12/02/24 12/03/24 12/03/24 22:59 06:59 14:59 Intake Total 811 / 1271 320 / 1591 240 / 240 Output Total 400 / 870 550 / 1420 Balance 411 / 401 -230 / 171 240 / 240 Weight last 48 hrs Weight 76.793 kg Weight 74.435 kg Weight 72.575 kg Physical Exam 2 Const: COMMON NORMALS: no acute distress, average body habitus, patient oriented x3 and no limitations HENMT: COMMON NORMALS: normocephalic and atraumatic HEAD & SCALP: n ormocephalic and atraumatic Eye: COMMON NORMALS: Equal, round and reactive pupils present and EOMs intact bilaterally PUPIL: Yes Equal, round and reactive pupils present Neck/C-Spine: COMMON NORMALS: no JVD Lymph: LYMPHATIC: no lymphadenopathy noted Chest: COMMONS NORMALS: normal inspection of the chest and normal palpation of entire chest wall Resp: COMMON NORMALS: normal respiratory effort, No retractions, No use of accessory muscles and clear to auscultation bilaterally AUSCULTATION: clear to auscultation bilaterally Cardio: COMMON NORMALS: no JVD, regular rate, regular rhythm, S1 normal heart sound present, S2 normal heart sound present, No gallops present (Cardio), No murmurs present (Cardio), No rub (Cardio) and Peripheral pulses 2+ throughout RATE: regular rate RHYTHM: regular rhythm HEART SOUNDS: S1 normal heart sound present and S2 normal heart sound present PERIPHERAL PULSES: Peripheral pulses 2+ throughout GI: COMMON NORMALS: Soft to palpation, non-tender and no masses PALPATION: Yes Soft to palpation Back/Pelvis: COMMON NORMALS: thoracic and lumbar spine normal to inspection and no thoracic nor lumbar tenderness Extremity: COMMON NORMALS: no clubbing, cyanosis or edema and no pedal edema NARRATIVE EXTREMITY EXAM: left knee s/p TKA in surgical bandange. Neuro: COMMON NORMALS: patient oriented x3 and CN's II-XII intact bilaterally Skin: COMMON NORMALS: no rashes or lesions noted, no wounds and turgor normal GENERAL SKIN EXAM: no rashes or lesions noted and turgor normal Urinary Catheter Management: Castaneda: Cath Placed During This Visit: yes, but has since been removed by the nurse Reason for Continuing Indwelling Catheter: Decision to DC Catheter Urinary Catheter Date of Insertion: 12/02/24 Urinary Catheter Time of Insertion: 07:13 Date Urinary Catheter Removed: 12/03/24 Time Urinary Catheter Discontinued: 08:00 Data 12/03/24 04:35 A&P Assessment and plan 1. GERD (gastroesophageal reflux disease): 2. Atypical chest pain: Plan: 1. Atypical chest pain: Resolved with GI cocktail and belching and farting. - Cardiac enzymes initially negative with very minimal elevation this AM. - EKG normal will discontinue further serial enzymes and EKGs - discussed with cardiology, with atypical pain that resolved with GI interventions above and minimal risk factors with history of CVD, no need for further cardiology work up at this time. - A1c 5.8 11/12 - non-diabetic. 2. GERD (gastroesophageal reflux disease): Start pantoprazole. I have encouraged patient to take PPI outpatient and have EGD every 5 years due to severe reflux. PDMP PDMP Reviewed: Not Reviewed Attestations 2 Medical Necessity Statement*: admitted to observation for elective TKA. Time Spent in Patient Care: 16 - 35 minutes (>than 50% of time sp ent in counselling and/or direct pt care on unit) . Coding Level of Care Code Acute Code for Chg Fwd Diagnoses GERD (gastroesophageal reflux disease) K21.9 Atypical chest pain R07.89
--- NOTE | 2024-12-03 13:27 | PM.DCS ---
Discharge Providers Date of Admission: 12/02/24 10:36 Date of Discharge: December 03, 2024 Attending Provider at Admission: Kelly Miller MD Attending Provider at Discharge: Kelly Miller MD Consults: Hospitalist team, Dr. Toño Denny for chest pain subsequently diagnosed as epigastric pain. Cardiac enzymes negative Primary Care Provider: YUE Stark Diagnoses at Discharge Discharge Diagnosis 1. Primary osteoarthritis of left knee: 2. Status post total left knee replacement not using cement: 3. Gastroesophageal reflux disease, unspecified whether esophagitis present: 4. Atypical chest pain: Reason for Visit Reason for Visit: M17.12 Brief History: This 64-year-old woman presented to my office with complaints of severe left knee pain. She had significant limitations in her activities of daily living. 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 The patient had a flexion contracture as well as varus deformity. She was taking Celebrex without significant benefit. After discussion in the office, the patient wished to proceed with left total knee arthroplasty. Risks and complications were discussed with her. Consents were signed in the office and questions were answered. She was given further opportunity for questions on the morning of surgery. Hospital Course Hospital Course Patient was admitted under observation status following left total knee arthroplasty which went uneventfully. The patient did develop some epigastric pain which she stated was different than her normal epigastric pain, and therefore, a hospitalist consult was obtained to assure that this was not a typical cardiac pain. Patient responded to measures provided by the hospitalist team. It was decided that she had gas pains and GERD. Patient was encouraged to take medication for this upon discharge. Otherwise, she worked with physical therapy and was felt to be safe for discharge home. She will be discharged home with home health and will follow-up with us in the office as scheduled. Physical Exam Const: COMMON NORMALS: no acute distress, average body habitus, patient oriented x3 and alert GENERAL APPEARANCE: cooperative and comfortable ORIENTATION/CONSCIOUSNESS: Yes awake HENMT: COMMON NORMALS: normocephalic and atraumatic HEAD & SCALP: normocephalic and atraumatic Eye: GENERAL EYE: appearance normal, both eyes and all related structures Chest: COMMONS NORMALS: normal inspection of the chest Resp: COMMON NORMALS: normal respiratory effort EFFORT & INSPECTION: Yes able to speak in complete sentences and Yes symmetric chest movement Extremity: LEFT LOWER EXTREMITY: Yes knee joint (Large outer dressing is removed) Left knee: Yes inspection (No significant ecchymosis), Yes palpation (Minimal discomfort), Yes ROM (Not evaluated), Yes neurovascular exam (Intact distally) and Yes other (OpSite dry and intact) Neuro: COMMON NORMALS: patient oriented x3 SENSORIUM/ORIENTATION: Yes alert Psych: COMMON NORMALS: mental status grossly normal APPEARANCE: Yes grossly normal ATTITUDE: Yes calm and Yes engaged ATTENTION/CONCENTRATION: Yes attention grossly intact Skin: COMMON NORMALS: no rashes or lesions noted GENERAL SKIN EXAM: no rashes or lesions noted Urinary Catheter Management: Castaneda: Cath Placed During This Visit: yes, but has since been removed by the nurse Reason for Continuing Indwelling Catheter: Decision to DC Catheter Urinary Catheter Date of Insertion: 12/02/24 Urinary Catheter Time of Insertion: 07:13 Date Urinary Catheter Removed: 12/03/24 Time Urinary Catheter Discontinued: 08:00 Discharge Data Studies Completed and Pending Completed Studies During Hospitalization Category Date Time Status XR knee LT 1-2V [id number] Routine Exams 12/02/24 10:06 Completed Pending at discharge Category Date Time Status BMP [Basic Metabolic Panel] AM LABS Lab 12/04/24 04:00 Ordered CBC Auto Diff [Complete Blood Count w/Auto] AM LABS Lab 12/04/24 04:00 Ordered Pathology: Surgical [PTH] Routine Pth 12/02/24 09:40 Received Radiology Impressions Knee X-Ray 12/02/24 10:06 Impression: Left knee arthroplasty. Laboratory Results WBC 9.67 10^3/uL (3.29-11.43) 12/03/24 04:35 RBC 3.16 10^6/uL (3.85-5.65) L 12/03/24 04:35 Hgb 8.50 g/dL (11.27-16.99) L 12/03/24 04:35 Hct 26.3 % (36-47) L 12/03/24 04:35 MCV 83.2 fl (85-98) L 12/03/24 04:35 MCH 26.9 pg (27-33) L 12/03/24 04:35 MCHC 32.3 g/dL (30-55) 12/03/24 04:35 RDW 11.8 % (12.1-15.1) L 12/03/24 04:35 Plt Count 289 10^3/cmm (157-399) 12/03/24 04:35 MPV 10.2 fL (7.4-10.4) 12/03/24 04:35 Neut % (Auto) 70.1 % 12/03/24 04:35 Lymph % (Auto) 19.0 % 12/03/24 04:35 Lasalle % (Auto) 10.3 % 12/03/24 04:35 Eos % (Auto) 0.1 % 12/03/24 04:35 Baso % (Auto) 0.2 % 12/03/24 04:35 Neut # (Auto) 6.77 10^3/uL (1.8-7.7) 12/03/24 04:35 Lymph # (Auto) 1.8 10^3/uL (0.8-4.8) 12/03/24 04:35 Lasalle # (Auto) 1.0 10^3/uL (0.2-0.9) H 12/03/24 04:35 Eos # (Auto) 0.0 10^3/uL (0.0-0.8) 12/03/24 04:35 Baso # (Auto) 0.0 10^3/uL (0.0-0.1) 12/03/24 04:35 Nucleated RBC % (auto) 0 % 12/03/24 04:35 Nucleated RBCs # 0.0 /100WBC 12/03/24 04:35 Troponin T 5th Gen ng/L 16 ng/L (0-10) H 12/03/24 07:55 Troponin T Baseline 10 ng/L (0-10) 12/02/24 22:55 Vitals Last Vital Signs Temp 97.8 F 12/03/24 12:02 Pulse 65 12/03/24 12:02 Resp 16 12/03/24 12:16 BP 92/59 12/03/24 12:02 Pulse Ox 97 12/03/24 12:02 O2 Del Method Room Air 12/03/24 12:02 O2 Flow Rate 8 12/02/24 10:23 Discharge Plan Discharge Patient Disposition: Home Health Service Condition: Stable Prescriptions: New pantoprazole 40 mg Tablet,Delayed Release (Dr/Ec) 40 mg PO DAILY Qty: 30 2RF acetaminophen 500 mg Tablet 1,000 mg PO Q8H 15 Days Qty: 90 0RF aspirin 325 mg Tablet,Delayed Release (Dr/Ec) 325 mg PO DAILY 30 Days Qty: 30 0RF oxycodone 5 mg Tablet 5 mg PO Q4H PRN (Reason: Moderate To Severe Pain) 7 Days Qty: 40 0RF Continued celecoxib [Celebrex] 100 mg capsule 100 mg PO BID Qty: 60 2RF prednisone 10 mg tablet 20 mg PO BID tizanidine 2 mg tablet 2 mg PO PRN PRN (Reason: Pain) benzonatate 100 mg capsule 100 mg PO DAILY lisinopril 2.5 mg tablet 2.5 mg PO DAILY ciprofloxacin-dexamethasone 0.3-0.1 % drops,suspension 1 drp otic (ear) DAILY hydroxyzine HCl 10 mg tablet 10 mg PO DAILY Held acetaminophen 500 mg Tablet 500 mg PO Q6H PRN (Reason: Pain) Hold Instructions: You may resume your normal Tylenol dosing approximately 10 to 14 days after surgery Discontinued diclofenac sodium 75 mg tablet,delayed release (DR/EC) 75 mg PO DAILY PRN (Reason: Pain) ibuprofen [Ibuprofen IB] 200 mg Tablet 200 mg PO Q6H PRN (Reason: Pain) Head Transfer Clerk OK for DC: Hospitalist Discharge Order = DC NOW: Discharge Order (Routine); Ordered 12/03/24 Ordered By: Kelly Miller Other Ambulatory Orders: Physical Therapy Eval and Treat Outpatient (Order) Timeframe: 3 Days Location: Determined by Patient Ordered By: Kelly Millre Referrals: [facility] [Outside] - 12/07/24 10:00 am Referral Note: This is your appointment for Outpatient physical therapy. Kelly Miller MD [Physician, Orthopedics] - 12/15/24 1:15 pm Discharge Diet: Advance as tolerated, Usual diet and As Directed Discharge Activity: Increase activity as tolerated, Limit activity as instructed, Use walker/crutches as instructed and As per PT/OT instructions Patient Instructions: Acetaminophen (By mouth), Aspirin (By mouth), Pantoprazole (By mouth), Oxycodone, Slow Release (By mouth), Acute Wound Care (DC), Total Knee Replacement (DC), Opioid Safety, Post Anesthesia Care, Patient Portal & Carlin Instructions Activity Restrictions/Additional Instructions: Maintain dressing, and you may shower with the dressing in place. If it lifts up and begins to leak, you can remove it. Otherwise, we will remove it in the office. Weightbearing as tolerated. Gait training, ambulation, and strengthening per physical therapy. Elevate your leg is much as possible. Wear the MIHAELA hose when you are sitting during the day. Discharge Attestations Time Spent in Discharge Care*: greater than 30 min Specific Discharge Activities: educating patient, documenting/other paperwork and evaluating patient/reviewing data Quality Metrics Clinical Quality Measures [ No reported AMI, CVA or VTE this stay] Coding Level of Care Code Acute Code for Chg Fwd Diagnoses Primary osteoarthritis of left knee M17.12 Osteoarthritis type: primary Status post total left knee replacement not using cement Z96.652 Gastroesophageal reflux disease, unspecified whether esophagitis present K21.9 Esophagitis presence: esophagitis presence not specified Atypical chest pain R07.89
--- NOTE | 2024-12-03 14:38 | PC.NURSE ---
Written and verbal education given to patient and two family members at bedside. IV removed. All questions asked. Pt wheeled out in wheelchair and transferred into vehicle.
== END 2024-12-03 14:40 | disposition home health service (06) ==
LOC: MEDSURG 10:37
PROVIDERS: Internal Medicine; Admitting Provider Specialist; PCP Nurse Practitioner; Visit Provider Specialist
PROC: 8E0Y0CZ Robotic Assisted Procedure of Lower Extremity, Open Approach (ICD-10-PCS; CPT 27447; principal; 2024-12-02 07:00)
DX: M17.12 Unilateral primary osteoarthritis, left knee (principal); M25.762 Osteophyte, left knee; K21.9 Gastro-esophageal reflux disease without esophagitis; R07.89 Other chest pain
CPT/HCPCS: 27447; 20985; 36415; 51702; 73560; 84484; 85025; 88304; 93005; 97110; 97116; 97161; 97165; 97530; A4216; C1776; G0378; J0131; J0666; J0690; J1100; J1171; J2250; J2405; J2704; J3010; J3373; J3490; J7030; J9999

== ENCOUNTER → 2024-12-15 12:57 | Outpatient (BNVA) | payer BC, SELFPAY | PROVIDERS: PCP Nurse Practitioner; Visit Provider Specialist | DX: Z98.890 Other specified postprocedural states (principal); Z96.652 Presence of left artificial knee joint | CPT/HCPCS: 73560; 73565 ==

== ENCOUNTER → 2025-01-05 13:18 | Outpatient (BNVA) | payer BC, SELFPAY | PROVIDERS: PCP Nurse Practitioner; Visit Provider Specialist | DX: Z98.890 Other specified postprocedural states (principal); Z96.652 Presence of left artificial knee joint | CPT/HCPCS: 73560; 73565 ==

== ENCOUNTER → 2025-01-12 11:11 | Outpatient (BNVA) | payer BC, SELFPAY | PROVIDERS: PCP Nurse Practitioner; Visit Provider Specialist | DX: M17.11 Unilateral primary osteoarthritis, right knee (principal); M21.061 Valgus deformity, not elsewhere classified, right knee; Z01.818 Encounter for other preprocedural examination | CPT/HCPCS: 36415; 73560; 73565; 80053; 85025 ==

== ENCOUNTER 2025-01-20 14:27 | Outpatient (CLI) | payer BC, SELFPAY ==
--- NOTE | 2025-01-20 14:45 | CT_ITS ---
WS: [id number] CT RIGHT KNEE, NONCONTRAST JEROME TECHNIQUE: Noncontrast CT of the RIGHT knee to include the RIGHT hip and ankle. CLINICAL INFORMATION: scheduled for surgery with jerome COMPARISON: None. DLP: 966.[address] scans at [facility] use at least one of these dose optimization techniques: automated exposure control; mA and/or kV adjustment per patient size (includes targeted exams where dose is matched to clinical indication); or iterative reconstruction. FINDINGS: Osteopenia. Moderate degenerative arthritis sacroiliac joints. Sigmoid diverticulosis. Sigmoid constipation. Advanced tricompartmental arthritis RIGHT knee. Hypertrophic patella. Moderate suprapatellar effusion. Hypertrophic changes along the joint line. CT/CT knee RT JEROME [id number] IMPRESSION: Images obtained for preoperative purposes.
== END 2025-01-20 14:28 | disposition home or self-care (01) ==
LOC: RAD 14:29
PROVIDERS: PCP Nurse Practitioner; Visit Provider Specialist
DX: M17.11 Unilateral primary osteoarthritis, right knee (principal); M21.061 Valgus deformity, not elsewhere classified, right knee; M85.88 Other specified disorders of bone density and structure, other site; M46.1 Sacroiliitis, not elsewhere classified; K57.30 Diverticulosis of large intestine without perforation or abscess without bleeding; M25.461 Effusion, right knee; M89.361 Hypertrophy of bone, right tibia
CPT/HCPCS: 73700

== ENCOUNTER → 2025-02-01 15:47 | Outpatient (BNVA) | payer BC, SELFPAY | PROVIDERS: PCP Nurse Practitioner; Visit Provider Family Medicine | DX: Z01.810 Encounter for preprocedural cardiovascular examination (principal) | CPT/HCPCS: 80053; 81000; 85025 ==

== ENCOUNTER 2025-02-08 14:58 | Observation (INO) | payer BC, SELFPAY ==
--- NOTE | 2025-02-07 09:30 | PC.NURSE ---
This RN called pt to do TPO. TP did not answer, left VM to call back osmin.
[2025-02-08] VITALS (20 sets, daily range): BP systolic 92–139; BP diastolic 54–77; PULSE 61–88; RESP 12–19; TEMP 36.3–36.6; O2SAT 90–100; BMI 28.8
[2025-02-08] MEDS: acetaminophen 1,000 MG/100 ML PIGGYBACK 400 MG IV ×2 (10:20→16:36)
--- NOTE | 2025-02-08 10:42 | P.ANESASSM_ITS ---
Pre-Anesthetic Assessment Height/Weight: Height 5 ft 3 in Weight 163 lb Temp Pulse Resp BP Pulse Ox O2 Del Method 97.6 F 88 18 139/77 98 Room Air 02/08/25 10:12 02/08/25 10:12 02/08/25 10:12 02/08/25 10:12 02/08/25 10:12 02/08/25 10:12 Preop Diagnosis: knee osteoarthritis Operation Date: 02/08/25 11:30 Proposed Procedures p RIGHT Zach Robot Total Knee Arthroplasty(Right) - Kelly Miller MD Was Beta Sera taken within 24 hours: N/A Was Clonidine taken within 24 hours: N/A Last intake: Intake Last Liquid Date 02/07/25 Last Liquid Time 23:40 Last Solid Date 02/07/25 Last Solid Time 23:40 Social No alcohol and No tobacco Exam alert, oriented x 3, clear to auscultation bilaterally and regular rate & rhythm Airway Submandibular: within normal limits Cervical ROM: within normal limits Mallampati: Class II Dentition: partials Anesthetic Plan ASA status: 2 Anesthesia: General Other: Concern for possible MH in father but patient states that he always did okay with anesthesia just would get hot and have postop delirium. Patient had a GA earlier this year and ran on propofol gtt. without issues LMA size 4 last time NPO since yesterday evening Denies any cardiac or pulmonary issues Labs reviewed from 10/27/2024 and acceptable for procedure EKG sinus rhythm Plan for general anesthesia with TIVA Risk of > 500 ml blood loss (7ml/kg in children): Yes, adequate IV access and fluids planned Medications/Allergies Home Medications ?Medication ?Instructions ?Recorded ?Confirmed ?Last Taken ?Type No Known Home Medications 02/08/2501/20 Unknown History Allergies Allergy/AdvReac Type Severity Reaction Status Date / Time onion Allergy Severe ADR-Heartbu Verified 02/08/25 10:03 rn eggs Allergy Severe ADR-Vomitin Uncoded 02/08/25 10:03 g garlic Allergy Severe ADR-Confusi Uncoded 02/08/25 10:03 on Current Medications Generic Name Dose Route Start Last Admin Trade Name Freq PRN Reason Stop Dose Admin Sodium Chloride 1,000 mls @ 30 mls/hr 02/08/25 10:00 02/08/25 10:21 Sodium Chloride 0.9% IV 02/09/25 09:59 30 mls/hr .Q24H ARABELLA Administration PFSH Anesthesia Medical History (Updated 02/01/25 @ 15:43 by Jesus Xavier MD) Gastroesophageal reflux disease, unspecified whether esophagitis present Chronic pain of left knee Primary osteoarthritis of left knee Family History Grandmother Cancer esophageal, breast Father Hypertension Arthritis Stroke Diabetes Social History Smoking and tobacco/nicotine status: never used tobacco/nicotine Quit status (tobacco/nicotine): has quit using Second hand smoke exposure: No Alcohol intake: former Former alcohol use details: occasionally Substance/Drug Use: never Adopted: No Caregiver/support person: No Lives independently: Yes Housing: House Marital status: / Marital status details: , then Number of children: 2 Number of grandchildren: 1 service: No Current occupational status: employed 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
--- NOTE | 2025-02-08 11:00 | W.PM.OPSUD ---
Surgery/Procedure H&P Update DATE OF PROCEDURE: February 08, 2025 DATE H&P PERFORMED: 01/12/25 H&P UPDATE INFORMATION: I have reviewed H&P completed within last 30 days, I have examined patient prior to procedure, No changes to prior documentation, H&P is in [facility] EMR on date indicated and Risks and benefits of the procedure reviewed PREOP DIAGNOSIS: Right knee osteoarthritis PLANNED PROCEDURE: Operation Date: 02/08/25 11:30 Proposed Procedures p RIGHT Zach Robot Total Knee Arthroplasty(Right) - Kelly Miller MD Related Problem List Diagnoses 1. Primary osteoarthritis of right knee: 2. Valgus deformity, not elsewhere classified, right knee:
[2025-02-08] MEDS: ceFAZolin 2,000 mg SDV 2000 MG IVP ×2 (12:51→20:43)
[2025-02-08] MEDS: ceFAZolin 1,000 mg SDV 2000 MG IRRIGATION (13:15)
[2025-02-08] MEDS: BUPivacaine liposome 13.3 mg/mL SDV 20 mL 266 MG INJECTION (14:00)
[2025-02-08] MEDS: BUPivacaine 0.5% INJ 30 mL 20 ML INJECTION (14:00)
--- NOTE | 2025-02-08 15:48 | XRR_ITS ---
PROCEDURE INFORMATION: Exam: XR Right Knee Exam date and time: 02/08/2025 3:46 PM Age: 64 years old Clinical indication: Device placement; Joint replacement hardware; Prior surgery; Surgery date: Post-operative (0-2 days); Surgery type: Right total knee arthroplasty; Additional info: S/P post right total knee arthroplasty TECHNIQUE: Imaging protocol: Radiologic exam of the right knee. Views: 1 or 2 views. COMPARISON: CT knee RT [facility] [id number] 01/20/2025 2:43 PM FINDINGS: Bones/joints: Postsurgical changes of total knee arthroplasty. Alignment appears normal. Tiny thin linear ossific fragment measuring 5 mm at the posterior margin of the proximal tibia which appears lifted from the surgical tract, not unexpected. Soft tissues: Soft tissue fullness and gas about the operative site. XR/XR knee RT 1-2V [id number] IMPRESSION: Expected postoperative appearance of right total knee arthroplasty with no evidence of significant complication.
[2025-02-08] MEDS: fentaNYL 50 mcg/mL INJ 2mL IVP (16:00)
--- NOTE | 2025-02-08 16:02 | PM.OP ---
Operative Report Date of procedure: February 08, 2025 Pre-op diagnosis: Primary osteoarthritis right knee with valgus deformity and flexion contracture of approximately 8 degrees Post-op diagnosis: Primary osteoarthritis right knee with valgus deformity and flexion contracture of approximately 8 degrees Post-op findings: Severe degenerative osteoarthritis with complete denudement of cartilage. Patient had a flexion contracture of approximately 7 to 8 degrees as well as valgus deformity and instability to exam Procedure done: Right total knee arthroplasty with Zach guidance Implants: The [place] total knee system with a size 3 triathlon beaded cruciate retaining femur right, a triathlon titanium tibial component size 2 beaded, a triathlon X3 tibial bearing CS insert size 2 x 11 mm and a beaded triathlon titanium asymmetric patella size 32 x 10 mm Specimens removed/disposition: Bone, disposed of Pathology: None Surgeon: Kelly Miller MD Investor Relations Coordinator: Keiko Paul, nurse practitioner, who services were required for retraction, positioning, completion of the surgical procedure, and closure. Estimated blood loss (mL): 250 Tourniquet time (min): 0 (Not utilized) IV fluids (mL): 2,500 Urine output (mL): 150 Complications: None Findings: As above Condition: stable Disposition: PACU (Then to floor for postoperative rehabilitation and pain management) Brief History: This 64-year-old woman initially presented with bilateral knee complaints. She had severe limitations in her activities of daily living. 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 Both knees demonstrated a flexion contracture and valgus deformity to the right knee. The patient had nonsteroidal anti-inflammatory medications without benefit. Risks and complications were discussed with her and consents were signed. She has undergone left total knee arthroplasty and recovered very nicely from that. She wishes to proceed with right total knee arthroplasty at this time. Procedure: The patient was brought to the operating theater, and after undergoing general anesthesia intubated, ASA 2, the right lower extremity was prepped with Dura-Prep and draped in usual fashion following placement of a tourniquet high on the leg. The leg was then draped free.? Tourniquet was not elevated throughout the surgical procedure. Prior to commencement of the procedure, a surgical pause was performed, and at the time of the surgical pause, we confirmed the site and side of surgery. Additionally, we confirmed the appropriate and timely administration of preoperative antibiotics, Ancef 2 g. The availability of equipment was confirmed, and the patient's identity was verbalized as well. Following the surgical pause, an incision was made centering over the patella continuing proximally and distally as necessary to allow access to the knee joint. Prior to incision, assessment was made of the patient's leg, and there was noted to be a significant flexion contracture. Dissection continued through skin and soft tissues using a scalpel. Hemostasis was obtained using electrocautery. The skin incision was followed by a median parapatellar arthrotomy. The leg was extended, and the patella was able to be displaced laterally.? Large osteophytes were removed from the patella initially and also from the anterior femur secondary to obstruction of the surgical field. Appropriate arrays and markers were placed in appropriate position for use of the Zach.? Preoperative planning had been accomplished and was discussed in detail with the Zach surgical sales representative.? Intraoperative mapping of the femur and tibia was accomplished after the arrays were placed.? Internal markers were also placed.? Once we had accomplished the Zach mapping, we began the appropriate resections for placement of the prosthesis.? The plan was for a cruciate retaining left total knee arthroplasty. Once appropriate mapping had been accomplished retraction was established using manual retraction by surgical technicians and also the Zach leg positioner and retractors.? The knee was evaluated.? There was significant osteoarthritic change as well as a significant flexion contracture and severe valgus deformity.? With the Zach, we were able to determine that the preoperative flexion contracture was 7-8 degrees. Intraoperative planning was adjusted based on this preoperative flexion contracture. Appropriate bone resection was accomplished using the Zach.? The femur was sized to a size 3.? Following femoral cuts, attention was directed to the tibia.? Osteophytes were removed prior to this portion of the procedure.? We had performed a medial release at the beginning of the procedure to allow for placement of the array.? Proximal tibia was evaluated, and it was felt that appropriate size for the tibia was a size 2.? The size 2 tray was noted to fit nicely with good coverage.? Rim fit was accomplished with the size 2. A trial reduction was accomplished after osteophytes had been removed as well as the medial and lateral menisci.? We had removed the anterior cruciate ligament at the beginning of the case and preserved the posterior cruciate ligament.? Trial reduction was accomplished with a size 2 femoral cruciate retaining component, a size 2 tibial tray and a size 2 CS tibial bearing insert which was 11 mm thickness. With this insert, the knee was noted to be well-balanced. Alignment was felt to be appropriate as well. Trial components were removed after the femur had been drilled.? Prior to removal of the tibial tray which had been pinned in position with appropriate rotation as determined by the Zach plan, we broached the tibia.? Subsequently, the 4 drill holes were made for the prosthetic component.? All trial components were removed, and the wound was irrigated.? Plans were made for insertion of the prosthetic components.? Prior to this, the patella was manually prepared.? After resection of the articular surface with the jigging system, it was measured and measured a 32 mm patella.? We resected approximately 6 mm of patella.? Patellar height was restored with the patellar component. Lateral release was required. Once again, the wound was irrigated. The Tritanium tibia was impacted into position.? The beaded femur was then impacted into position in a cementless fashion. The CS tibial insert was placed prior to placement of the femoral component. The patella was pressed into position with a patellar clamp.? Exparel was injected about the components deep and superficially.? The knee was then copiously irrigated with betadine and saline and suctioned dry. Attention was then directed to closure. Closure was accomplished with 0 Vicryl in the fascial tissues.? The suture line of 0 Vicryl was supplemented with strata fix, #1, with a running suture from proximal to distal and a second running stitch from distal to proximal.? This was followed by Surgiflo and vancomycin powder.? Following this, a 2-0 Monocryl was used in the subcutaneous tissues, and the skin was closed with 3-0 Strata fix.? Care was taken to assure an excellent subcutaneous as well as skin closure.? A sterile dressing was then placed consisting of Dermabond Prineo, OpSite, ABD, sterile soft roll, and an Hardeep wrap including over the foot. The patient was returned the Recovery Room in a satisfactory condition. X-rays were obtained and reviewed there.? The patient will be discharged to the floor for postoperative rehabilitation and pain management. Related Problem List Diagnoses 1. Primary osteoarthritis of right knee: 2. Valgus deformity, not elsewhere classified, right knee: 3. Flexion contracture of right knee:
--- NOTE | 2025-02-08 16:12 | PC.NURSE ---
This nurse took report from SHAY Castañeda in PACU at 1612.
--- NOTE | 2025-02-08 16:25 | ANE.PACU2 ---
Inpatient post-anesthesia follow up: Airway intact: Yes Vital signs: Temperature 97.6 F Pulse Rate 74 Respiratory Rate 18 Blood Pressure 108/53 Pulse Oximetry 97 Oxygen Delivery Me thod Room Air Oxygen Flow Rate Fraction of Inspir ed Oxygen Hydration adequate: Yes Nausea and vomiting: No Pain level: 1 Mental status: Baseline
[2025-02-08] MEDS: chlorhexidine gluconate 0.12% Btl 473 mL 30 ML MUCOUS MEM ×2 (16:36→21:12)
[2025-02-08] MEDS: mupirocin oint 22 gm 1 APPLIC NASAL (16:39)
[2025-02-08] MEDS: sennosides-docusate Tablet 2 TAB PO (16:39)
[2025-02-08] MEDS: oxyCODONE 5 mg IR Tab/Cap PO ×2 (16:44→20:42)
[2025-02-08] MEDS: ondansetron 2 mg/ML SDV 2 mL 4 MG IVP (22:06)
[2025-02-09] VITALS (7 sets, daily range): BP systolic 92–108; BP diastolic 53–65; PULSE 71–88; RESP 16–19; TEMP 36.4–36.7; O2SAT 97–99
[2025-02-09] MEDS: oxyCODONE 5 mg IR Tab/Cap PO ×3 (03:08→13:11)
[2025-02-09] MEDS: acetaminophen 1,000 MG/100 ML PIGGYBACK 400 MG IV (04:29)
[2025-02-09] MEDS: ceFAZolin 2,000 mg SDV 2000 MG IVP ×2 (04:30→13:12)
[2025-02-09] MEDS: multivitamin therapeutic Tablet 1 TAB PO (04:31)
[2025-02-09] MEDS: sennosides-docusate Tablet 2 TAB PO (04:31)
[2025-02-09] MEDS: mupirocin oint 22 gm 1 APPLIC NASAL (04:33)
[2025-02-09] MEDS: chlorhexidine gluconate 0.12% Btl 473 mL 30 ML MUCOUS MEM ×2 (04:33→11:31)
[2025-02-09 05:27] LABS: Hematocrit 28.8 % (36-47); Hemoglobin 8.90 g/dL (11.27-16.99); Mean Corpuscular HGB Conc 30.9 g/dL (30-55); Mean Corpuscular Hemoglobin 25.7 pg (27-33); Mean Corpuscular Volume 83.2 fl (85-98); Nucleated Red Blood Cells % 0 %; Platelet Count 270 10^3/cmm (157-399); Red Blood Count 3.46 10^6/uL (3.85-5.65); White Blood Count 8.17 10^3/uL (3.29-11.43)
[2025-02-09 05:41] LABS: Anion Gap 16.5 (5-19); Blood Urea Nitrogen 19 mg/dL (8-23); Calcium 8.6 mg/dL (8.5-10.5); Carbon Dioxide 22 mmol/L (22-29); Chloride 105 mmol/L (98-107); Creatinine Clr Calc Pharmacy 67.5290; Glucose 111 mg/dL (65-115); Osmolality Calculated 291 mOsm/kg (285-295); Potassium 4.5 mmol/L (3.5-5.1); Sodium 139 mmol/L (136-145)
[2025-02-09] MEDS: metoclopramide 5 mg/mL SDV 2 mL 10 MG IV (07:40)
--- NOTE | 2025-02-09 09:25 | PC.CHAP ---
Pastoral Care Encounter/Spiritual Assessment Type of Contact [] Declined patient financial services manager visit [] Patient/Family/Request visit [] Outpatient visit [] Follow-up visit [] Physician referral [] Code/Alert [x] Routine visit [] Staff referral [] Actively dying [] Patient sleeping [] Family support [] [] Out of room [] Palliative care [] [] Receiving care in room [] Pre-surgical visit [] Trauma [] Long length of stay [] ICU visit [] Other: Relational/Emotional Strength [x] Patient feels connected with others/family/visitors/staff [] Distress [] Loneliness/isolation [] Abandonment Spirituality of Patient [x] Person of Marcela [] Attends Roman Catholic of their Marcela [x] Believes in Prayer [] Reads Bible or Temple materials [] There are Spiritual issues to be addressed In Process Inspector Interventions [x] Prayer [x] Active listening [] Non-anxious presence [x] Spiritual/emotional support [] Crisis/trauma care [] Spiritual counseling [] Bereavement support [] Provided bereavement packet [] Provided Bible/devotional materials [] Provided toy/stuffed animal, coloring book to patient or family member [] Provided Communion [] Anointing/Hortense [] Salvation [x] Completed spiritual assessment [] Other: Impact on Illness or Injury [] Angry [] Fearful [] Anxious [] Often cries [] Exhaustion [] Unable to work [] Unable to attend lutheran [] Unable to walk/stand [] Unable to read [] Unable to drive [] Unable to eat/drink [] Unable to sleep [] Unable to be with family [] Patient intubated [] Other: Summary Time spent with patient 5 min
[2025-02-09] MEDS: ondansetron 2 mg/ML SDV 2 mL 4 MG IVP (11:33)
--- NOTE | 2025-02-09 13:20 | PM.DCS ---
Discharge Providers Date of Admission: 02/08/25 14:58 Date of Discharge: February 09, 2025 Attending Provider at Admission: Kelly Millre MD Attending Provider at Discharge: Kelly Miller MD Primary Care Provider: YUE Stark Diagnoses at Discharge Discharge Diagnosis 1. Primary osteoarthritis of right knee: 2. Valgus deformity, not elsewhere classified, right knee: 3. Flexion contracture of right knee: 4. Status post total right knee replacement not using cement: Reason for Visit Reason for Visit: M17.11 Brief History: This 64-year-old woman initially presented with bilateral knee complaints. She had severe limitations in her activities of daily living. 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 Both knees demonstrated a flexion contracture and valgus deformity to the right knee. The patient had nonsteroidal anti-inflammatory medications without benefit. Risks and complications were discussed with her and consents were signed. She has undergone left total knee arthroplasty and recovered very nicely from that. She wishes to proceed with right total knee arthroplasty at this time. Hospital Course Hospital Course This 64-year-old woman was admitted under observation status following same-day surgery for right total knee arthroplasty. The patient tolerated the procedure well. She did well overnight. On the first postoperative day, she worked with physical therapy and did well with this. Dressings were removed, and there was no evidence of DVT. There was minimal to no swelling in the leg. Patient was felt to be safe and independent for discharge to home. She did have some nausea, but this resolved with time. She was discharged home to follow-up with me in the office as scheduled. Physical Exam Const: COMMON NORMALS: no acute distress, average body habitus, patient oriented x3 and alert GENERAL APPEARANCE: cooperative and comfortable ORIENTATION/CONSCIOUSNESS: Yes awake HENMT: COMMON NORMALS: normocephalic and atraumatic HEAD & SCALP: normocephalic and atraumatic Eye: GENERAL EYE: appearance normal, both eyes and all related structures Chest: COMMONS NORMALS: normal inspection of the chest Resp: COMMON NORMALS: normal respiratory effort EFFORT & INSPECTION: Yes able to speak in complete sentences and Yes symmetric chest movement Extremity: LEFT LOWER EXTREMITY: Yes knee joint (Large outer dressing was removed. Dressing was dry.) Left knee: Yes inspection (Minimal swelling and ecchymosis), Yes palpation (No significant tenderness), Yes ROM (Able to partially straight leg raise) and Yes neurovascular exam (Intact distally with no evidence of DVT) Neuro: COMMON NORMALS: patient oriented x3 SENSORIUM/ORIENTATION: Yes alert Psych: COMMON NORMALS: mental status grossly normal APPEARANCE: Yes grossly normal ATTITUDE: Yes calm and Yes engaged ATTENTION/CONCENTRATION: Yes attention grossly intact Skin: COMMON NORMALS: no rashes or lesions noted GENERAL SKIN EXAM: no rashes or lesions noted Urinary Catheter Management: Castaneda: Cath Placed During This Visit: yes, but has since been removed by the nurse Reason for Continuing Indwelling Catheter: Other Urinary Catheter Date of Insertion: 02/08/25 Urinary Catheter Time of Insertion: 12:55 Date Urinary Catheter Removed: 02/09/25 Time Urinary Catheter Discontinued: 05:50 Discharge Data Studies Completed and Pending Completed Studies During Hospitalization Category Date Time Status XR knee RT 1-2V 16241 Routine Exams 02/08/25 15:48 Completed Radiology Impressions Knee X-Ray 02/08/25 15:48 IMPRESSION: Expected postoperative appearance of right total knee arthroplasty with no evidence of significant complication. Laboratory Results WBC 8.17 10^3/uL (3.29-11.43) 02/09/25 04:20 RBC 3.46 10^6/uL (3.85-5.65) L 02/09/25 04:20 Hgb 8.90 g/dL (11.27-16.99) L 02/09/25 04:20 Hct 28.8 % (36-47) L 02/09/25 04:20 MCV 83.2 fl (85-98) L 02/09/25 04:20 MCH 25.7 pg (27-33) L 02/09/25 04:20 MCHC 30.9 g/dL (30-55) 02/09/25 04:20 RDW 14.1 % (12.1-15.1) 02/09/25 04:20 Plt Count 270 10^3/cmm (157-399) 02/09/25 04:20 MPV 11.0 fL (7.4-10.4) H 02/09/25 04:20 Neut % (Auto) 69.2 % 02/09/25 04:20 Lymph % (Auto) 18.0 % 02/09/25 04:20 [place] % (Auto) 10.5 % 02/09/25 04:20 Eos % (Auto) 1.6 % 02/09/25 04:20 Baso % (Auto) 0.5 % 02/09/25 04:20 Neut # (Auto) 5.65 10^3/uL (1.8-7.7) 02/09/25 04:20 Lymph # (Auto) 1.5 10^3/uL (0.8-4.8) 02/09/25 04:20 [place] # (Auto) 0.9 10^3/uL (0.2-0.9) 02/09/25 04:20 Eos # (Auto) 0.1 10^3/uL (0.0-0.8) 02/09/25 04:20 Baso # (Auto) 0.0 10^3/uL (0.0-0.1) 02/09/25 04:20 Nucleated RBC % (auto) 0 % 02/09/25 04:20 Nucleated RBCs # 0.0 /100WBC 02/09/25 04:20 Sodium 139 mmol/L (136-145) 02/09/25 04:20 Potassium 4.5 mmol/L (3.5-5.1) 02/09/25 04:20 Chloride 105 mmol/L (98-107) 02/09/25 04:20 Carbon Dioxide 22 mmol/L (22-29) 02/09/25 04:20 Anion Gap 16.5 (5-19) 02/09/25 04:20 BUN 19 mg/dL (8-23) 02/09/25 04:20 Creatinine 0.8 mg/dL (0.5-0.9) 02/09/25 04:20 GFR Calculation 72.0 mL/min (90-130) L 02/09/25 04:20 Glucose 111 mg/dL (65-115) 02/09/25 04:20 Calculated Osmolality 291 mOsm/kg (285-295) 02/09/25 04:20 Calcium 8.6 mg/dL (8.5-10.5) 02/09/25 04:20 Vitals Last Vital Signs Temp 97.6 F 02/09/25 11:10 Pulse 88 02/09/25 11:10 Resp 16 02/09/25 13:11 BP 105/65 02/09/25 11:10 Pulse Ox 99 02/09/25 11:10 O2 Del Method Room Air 02/09/25 11:10 Discharge Plan Discharge Patient Disposition: Home Health Service Condition: Stable Prescriptions: New celecoxib 200 mg Capsule 200 mg PO 1XD 30 Days Qty: 30 0RF acetaminophen 500 mg Tablet 1,000 mg PO Q8H 15 Days Qty: 90 0RF aspirin 325 mg Tablet,Delayed Release (Dr/Ec) 325 mg PO DAILY 30 Days Qty: 30 0RF No Action ondansetron 4 mg tablet,disintegrating 4 mg PO TID PRN (Reason: nausea and vomiting) 5 Days Qty: 20 0RF oxycodone 5 mg tablet 5 mg PO Q4H PRN (Reason: Moderate To Severe Pain) 7 Days Qty: 40 0RF Discharge Order = DC NOW: Discharge Order (Routine); Ordered 02/09/25 Ordered By: Kelly Miller Other Ambulatory Orders: Physical Therapy Eval and Treat Outpatient (Order) Timeframe: 3 Days Facility: [facility] - Location: Physical Therapy Ordered By: Kelly Miller Referrals: Kelly Miller MD [Physician, Orthopedics] - 02/28/25 9:15 am Discharge Diet: Advance as tolerated and Usual diet Discharge Activity: Increase activity as tolerated, Limit activity as instructed, Use walker/crutches as instructed and As per PT/OT instructions Patient Instructions: Ondansetron (By mouth), Celecoxib (By mouth), Oxycodone/Aspirin (By mouth), Acute Wound Care (DC), Knee Arthroscopy (DC), Opioid Safety, Post Anesthesia Care, Patient Portal & [place]lin Instructions Activity Restrictions/Additional Instructions: Ice to right knee. You may ambulate weightbearing as tolerated. Use walker as instructed per PT. Physical therapy for range of motion, strengthening, and gait training. You may shower, but if your dressing lifts up you may remove it. Otherwise, leave the dressing in place until you are seen in the clinic. Discharge Attestations Time Spent in Discharge Care*: greater than 30 min Specific Discharge Activities: educating patient, documenting/other paperwork and evaluating patient/reviewing data Quality Metrics Clinical Quality Measures [ No reported AMI, CVA or VTE this stay] Coding Level of Care Code Acute Code for [facility] Fwd Diagnoses Primary osteoarthritis of right knee M17.11 Valgus deformity, not elsewhere classified, right knee M21.061 Flexion contracture of right knee M24.561 Status post total right knee replacement not using cement Z96.651
== END 2025-02-09 13:50 | disposition home health service (06) ==
LOC: MEDSURG 14:58
PROVIDERS: Admitting Provider Specialist; PCP Nurse Practitioner; Visit Provider Specialist
PROC: 8E0Y0CZ Robotic Assisted Procedure of Lower Extremity, Open Approach (ICD-10-PCS; CPT 27447; principal; 2025-02-08 11:30)
DX: M17.11 Unilateral primary osteoarthritis, right knee (principal); M21.061 Valgus deformity, not elsewhere classified, right knee; M24.561 Contracture, right knee; K21.9 Gastro-esophageal reflux disease without esophagitis; Z79.891 Long term (current) use of opiate analgesic
CPT/HCPCS: 27447; 20985; 36415; 51702; 73560; 80048; 85025; 97110; 97116; 97161; 97167; A4216; A4649; C1776; G0378; J0131; J0360; J0666; J0690; J1171; J2250; J2371; J2405; J2704; J2765; J3010; J3373; J3490; J7030; J7040; J9999

== ENCOUNTER → 2025-02-15 11:00 | Outpatient (BNVA) | payer BC, SELFPAY | PROVIDERS: PCP Nurse Practitioner; Visit Provider Nurse Practitioner | DX: R42 Dizziness and giddiness (principal) | CPT/HCPCS: 81000; 85025 ==

== ENCOUNTER → 2025-02-28 09:22 | Outpatient (BNVA) | payer BC, SELFPAY | PROVIDERS: PCP Nurse Practitioner; Visit Provider Specialist | DX: Z98.890 Other specified postprocedural states (principal); Z96.651 Presence of right artificial knee joint | CPT/HCPCS: 73560; 73565 ==

== ENCOUNTER → 2025-04-06 10:10 | Outpatient (BNVA) | payer BC, SELFPAY | PROVIDERS: PCP Nurse Practitioner; Visit Provider Specialist | DX: Z98.890 Other specified postprocedural states (principal); Z96.651 Presence of right artificial knee joint | CPT/HCPCS: 73560; 73565 ==